=== PATIENT | male | born 1990 | race Caucasian/White ===

== ENCOUNTER 2018-12-16 19:38 | Emergency (ER) | payer OTHER ==
[~2018-12-16] VITALS: Ht 180.3 cm; Wt 136.4 kg
[2018-12-16] MEDS ORDERED: AMOXICILLIN TRIHYDRATE 250 MG CAPSULE PO ONE (21:00)
[2018-12-16] MEDS ORDERED: TraMADol HCL 50 MG TABLET PO ONE (21:00)
[2018-12-16] MEDS ORDERED: IBUPROFEN 800 MG TABLET PO ONE (21:00)
[2018-12-16 21:57] VITALS: BP 140/80
== END 2018-12-16 21:58 | disposition home or self-care (01) ==
LOC: EMS 19:42
DX: K04.7 Periapical abscess without sinus (principal); F17.210 Nicotine dependence, cigarettes, uncomplicated